=== PATIENT | male | born 1990 | race Caucasian/White ===

== ENCOUNTER 2020-06-03 17:21 | Emergency (ER) | payer OTHER ==
[~2020-06-03 17:21] MED LIST: CYANOCOBAL1000 MCG/1 IJ; NAPROXEN500 MG PO; PROPRANOLOL HCL10 MG PO; SYMMETREL100 MG PO; ZOFRAN4 MG PO
[2020-06-03 18:34] LABS: BASOPHIL 0.3 % (0-2); EOSINOPHIL 0.3 % (0-5); HCT 39.8 % (42.0-52.0); HGB 13.3 g/dl (13.2-18.0); LYMPHOCYTE 15.3 % (15-48); MCH 28.6 pg (25.0-31.0); MCHC 33.4 g/dL (32.0-36.0); MCV 85.6 fL (78.0-100.0); MPV 10.4 fL (6.0-9.5); NEUTROPHIL 76.9 % (41-80); NRBC 0; PLT 178 K/uL (150-400); RBC 4.65 M/uL (4.70-6.00); RDW 12.3 % (11.5-14.0)
[2020-06-03 19:02] LABS: BILIRUBIN - TOTAL 0.5 mg/dL (0.2-1.0); BUN/CREAT RATIO (CALC) 26.9 RATIO; CREATININE 0.93 mg/dL (0.67-1.17); GLOBULIN (CALCULATION) 2.9 g/dL; POTASSIUM 4.4 mmol/L (3.5-5.1); TOTAL PROTEIN 6.9 g/dL (6.4-8.2)
== END 2020-06-03 20:22 | disposition home or self-care (01) ==
LOC: FER 17:21
PROVIDERS: Nurse Practitioner Family
DX: R07.89 Other chest pain (principal); R06.02 Shortness of breath; Z91.09 Other allergy status, other than to drugs and biological substances
CPT/HCPCS: 36415; 71046; 80053; 84443; 84484; 85025; 93005

== ENCOUNTER 2020-07-29 19:02 | Emergency (ER) | payer MEDICARE, OTHER ==
[2020-07-29 20:17] LABS: BASOPHIL 0.8 % (0-2); EOSINOPHIL 0.4 % (0-5); HGB 14.4 g/dl (13.2-18.0); LYMPHOCYTE 26.3 % (15-48); MCHC 34.3 g/dL (32.0-36.0); MCV 84.7 fL (78.0-100.0); MONOCYTE 8.2 % (0-12); MPV 11.8 fL (6.0-9.5); NEUTROPHIL 64.3 % (41-80); NRBC 0; PLT 182 K/uL (150-400); RBC 4.96 M/uL (4.70-6.00); RDW 12.7 % (11.5-14.0); WBC 5.1 K/uL (4.0-10.5)
[2020-07-29 20:22] LABS: INR 1.17 (0.9-1.2); PROTHROMBIN TIME 14.1 SECONDS (11.4-13.6); PTT 27.8 SECONDS (22.2-34.7)
[2020-07-29 20:23] LABS: D-DIMER 0.47 ug/mLFEU (0.00-0.41)
[2020-07-29 20:33] LABS: PRO-BNP 21 pg/mL (<125)
[2020-07-29 20:47] LABS: AMPHETAMINES NEGATIVE (NEGATIVE); BARBITURATES NEGATIVE (NEGATIVE); ECSTASY (MDMA) NEGATIVE (NEGATIVE); MARIJUANA (THC) NEGATIVE (NEGATIVE); METHADONE NEGATIVE (NEGATIVE); OPIATES NEGATIVE (NEGATIVE); OXYCODONE NEGATIVE (NEGATIVE)
[2020-07-29 20:48] LABS: BILIRUBIN NEGATIVE (NEGATIVE); BLOOD NEGATIVE Ery/uL (NEGATIVE); CLARITY CLEAR (CLEAR); COLOR YELLOW (YELLOW); GLUCOSE (U) NORMAL (NORMAL); LEUKOCYTES NEGATIVE Leu/uL (NEGATIVE); NITRITE NEGATIVE (NEGATIVE); PROTEIN NEGATIVE (NEGATIVE); SPECIFIC GRAVITY 1.015 (1.001-1.030); UROBILINOGEN 0.2 mg/dL (0.2-1.0)
[2020-07-29 20:58] LABS: ALBUMIN 4.7 g/dL (3.4-5.0); BILIRUBIN - TOTAL 0.5 mg/dL (0.2-1.0); BUN/CREAT RATIO (CALC) 25.7 RATIO; CREATININE 1.01 mg/dL (0.67-1.17); GLOBULIN (CALCULATION) 3.5 g/dL; POTASSIUM 2.9 mmol/L (3.5-5.1); TOTAL PROTEIN 8.2 g/dL (6.4-8.2)
== END 2020-07-30 02:16 | disposition home or self-care (01) ==
LOC: FER 19:02
PROVIDERS: Emergency Medicine Emergency Medical Services
DX: R07.89 Other chest pain (principal); E87.6 Hypokalemia; R00.0 Tachycardia, unspecified; R10.31 Right lower quadrant pain; Z88.6 Allergy status to analgesic agent; Z88.8 Allergy status to other drugs, medicaments and biological substances
CPT/HCPCS: 36415; 71045; 80053; 80305; 81003; 82088; 82306; 82533; 82550; 83036; 83690; 83880; 84439; 84443; 84484; 85025; 85379; 85610; 85730; 86140; 87339; 93005; J3480; J7030

== ENCOUNTER 2020-09-05 20:59 | Emergency (ER) | payer MEDICARE, OTHER | END 2020-09-05 22:49 | disposition left against medical advice (07) | LOC: FER 20:59 | DX: R07.9 Chest pain, unspecified (principal); Z53.21 Procedure and treatment not carried out due to patient leaving prior to being seen by health care provider | CPT/HCPCS: 93005 ==

== ENCOUNTER 2020-12-03 08:42 | Emergency (ER) | payer MEDICARE, OTHER ==
[2020-12-03 09:58] LABS: BASOPHIL 0.6 % (0-2); EOSINOPHIL 1.7 % (0-5); HCT 45.4 % (42.0-52.0); HGB 14.9 g/dl (13.2-18.0); LYMPHOCYTE 27.7 % (15-48); MCH 28.4 pg (25.0-31.0); MCHC 32.8 g/dL (32.0-36.0); MCV 86.5 fL (78.0-100.0); MONOCYTE 10.2 % (0-12); MPV 11.1 fL (6.0-9.5); NEUTROPHIL 59.5 % (41-80); NRBC 0; PLT 179 K/uL (150-400); RBC 5.25 M/uL (4.70-6.00); RDW 12.2 % (11.5-14.0); WBC 3.6 K/uL (4.0-10.5)
[2020-12-03 09:59] LABS: BILIRUBIN NEGATIVE (NEGATIVE); BLOOD NEGATIVE Ery/uL (NEGATIVE); CLARITY CLEAR (CLEAR); COLOR YELLOW (YELLOW); GLUCOSE (U) NORMAL (NORMAL); LEUKOCYTES NEGATIVE Leu/uL (NEGATIVE); NITRITE NEGATIVE (NEGATIVE); PROTEIN NEGATIVE (NEGATIVE); UROBILINOGEN 0.2 mg/dL (0.2-1.0)
[2020-12-03 10:26] LABS: ALBUMIN 4.2 g/dL (3.4-5.0); BILIRUBIN - TOTAL 0.6 mg/dL (0.2-1.0); BUN/CREAT RATIO (CALC) 29.1 RATIO; CREATININE 0.79 mg/dL (0.67-1.17); GLOBULIN (CALCULATION) 3.5 g/dL; POTASSIUM 3.8 mmol/L (3.5-5.1); TOTAL PROTEIN 7.7 g/dL (6.4-8.2)
== END 2020-12-03 11:18 | disposition home or self-care (01) ==
LOC: FER 08:42
PROVIDERS: Emergency Medicine
DX: M54.50 Low back pain, unspecified (principal); Z88.8 Allergy status to other drugs, medicaments and biological substances; Z88.6 Allergy status to analgesic agent
CPT/HCPCS: 36415; 80053; 81003; 85025; 93005

== ENCOUNTER 2021-02-18 21:04 | Emergency (ER) | payer OTHER ==
[2021-02-18 22:03] LABS: BASOPHIL 0.5 % (0-2); EOSINOPHIL 1.1 % (0-5); HCT 43.8 % (42.0-52.0); HGB 14.7 g/dl (13.2-18.0); MCH 27.8 pg (25.0-31.0); MCHC 33.6 g/dL (32.0-36.0); MONOCYTE 9.4 % (0-12); MPV 11.7 fL (6.0-9.5); NRBC 0; PLT 180 K/uL (150-400); RBC 5.28 M/uL (4.70-6.00); RDW 11.8 % (11.5-14.0); WBC 3.7 K/uL (4.0-10.5)
[2021-02-18 22:28] LABS: BUN/CREAT RATIO (CALC) 28.9 RATIO; CREATININE 0.76 mg/dL (0.67-1.17); POTASSIUM 3.3 mmol/L (3.5-5.1)
[2021-02-18 23:44] LABS: CORONAVIRUS 2019 SARS-COV-2 NEGATIVE (NEGATIVE); INFLUENZA A NAA NEGATIVE (NEGATIVE)
== END 2021-02-19 00:50 | disposition home or self-care (01) ==
LOC: FER 21:04
PROVIDERS: Nurse Practitioner Family
DX: R07.89 Other chest pain (principal); R10.9 Unspecified abdominal pain; Z20.822 Contact with and (suspected) exposure to COVID-19; Z88.6 Allergy status to analgesic agent; Z88.8 Allergy status to other drugs, medicaments and biological substances
CPT/HCPCS: 36415; 71045; 80048; 83540; 84443; 85025; 93005; J7030; U0002

== ENCOUNTER 2021-05-08 05:55 | Emergency (ER) | payer OTHER ==
[2021-05-08 06:49] LABS: BASOPHIL 0.6 % (0-2); EOSINOPHIL 0.6 % (0-5); HCT 45.3 % (42.0-52.0); HGB 15.5 g/dl (13.2-18.0); LYMPHOCYTE 29.1 % (15-48); MCH 28.2 pg (25.0-31.0); MCHC 34.2 g/dL (32.0-36.0); MCV 82.5 fL (78.0-100.0); MONOCYTE 9.2 % (0-12); MPV 10.7 fL (6.0-9.5); NEUTROPHIL 60.2 % (41-80); NRBC 0; PLT 170 K/uL (150-400); RBC 5.49 M/uL (4.70-6.00); RDW 12.1 % (11.5-14.0); WBC 3.6 K/uL (4.0-10.5)
[2021-05-08 07:13] LABS: BUN/CREAT RATIO (CALC) 35.2 RATIO; CREATININE 0.88 mg/dL (0.67-1.17); POTASSIUM 3.3 mmol/L (3.5-5.1)
[2021-05-08 07:21] LABS: CORONAVIRUS 2019 SARS-COV-2 NEGATIVE (NEGATIVE); INFLUENZA A NAA NEGATIVE (NEGATIVE)
[2021-05-08 08:18] LABS: BILIRUBIN - TOTAL 0.6 mg/dL (0.2-1.0)
[2021-05-08 09:46] LABS: PHOSPHORUS 3.7 mg/dL (2.6-4.7)
== END 2021-05-08 12:14 | disposition home or self-care (01) ==
LOC: FER 05:55
PROVIDERS: Emergency Medicine; Internal Medicine
DX: R00.2 Palpitations (principal); R19.7 Diarrhea, unspecified; Z88.6 Allergy status to analgesic agent; Z88.8 Allergy status to other drugs, medicaments and biological substances; Z20.822 Contact with and (suspected) exposure to COVID-19
CPT/HCPCS: 36415; 71045; 80048; 82247; 83735; 83880; 84075; 84100; 84145; 84450; 84460; 84484; 85025; 85379; 93005; J3475; J3480; J7040; J7050; U0002

== ENCOUNTER 2021-09-06 10:40 | Emergency (ER) | payer OTHER ==
[2021-09-06 11:36] LABS: BASOPHIL 0.7 % (0-2); EOSINOPHIL 0.7 % (0-5); HCT 48.4 % (42.0-52.0); HGB 15.8 g/dl (13.2-18.0); LYMPHOCYTE 24.4 % (15-48); MCHC 32.6 g/dL (32.0-36.0); MCV 85.7 fL (78.0-100.0); MONOCYTE 7.1 % (0-12); MPV 10.8 fL (6.0-9.5); NEUTROPHIL 66.9 % (41-80); NRBC 0; PLT 211 K/uL (150-400); RBC 5.65 M/uL (4.70-6.00); RDW 12.8 % (11.5-14.0); WBC 4.1 K/uL (4.0-10.5)
[2021-09-06 11:39] LABS: INR 1.11 (0.9-1.2); PTT 29.7 SECONDS (24.9-34.6)
[2021-09-06 12:50] LABS: ALBUMIN 4.2 g/dL (3.4-5.0); BILIRUBIN - TOTAL 0.3 mg/dL (0.2-1.0); BUN/CREAT RATIO (CALC) 30.8 RATIO; CREATININE 1.04 mg/dL (0.67-1.17); GLOBULIN (CALCULATION) 3.4 g/dL; POTASSIUM 3.8 mmol/L (3.5-5.1); TOTAL PROTEIN 7.6 g/dL (6.4-8.2)
[2021-09-06 13:36] LABS: BILIRUBIN NEGATIVE (NEGATIVE); BLOOD NEGATIVE Ery/uL (NEGATIVE); CLARITY CLEAR (CLEAR); COLOR YELLOW (YELLOW); GLUCOSE (U) NORMAL (NORMAL); LEUKOCYTES NEGATIVE Leu/uL (NEGATIVE); NITRITE NEGATIVE (NEGATIVE); PROTEIN NEGATIVE (NEGATIVE); UROBILINOGEN 0.2 mg/dL (0.2-1.0)
[2021-09-06 13:44] LABS: BACTERIA TRACE; SQUAMOUS EPITHELIAL CELLS RARE; URINARY WBC RARE
[2021-09-07 13:21] LABS: AMPHETAMINES NEGATIVE (NEGATIVE); BARBITURATES NEGATIVE (NEGATIVE); ECSTASY (MDMA) NEGATIVE (NEGATIVE); MARIJUANA (THC) NEGATIVE (NEGATIVE); METHADONE NEGATIVE (NEGATIVE); OPIATES NEGATIVE (NEGATIVE); OXYCODONE NEGATIVE (NEGATIVE)
== END 2021-09-06 16:04 | disposition home or self-care (01) ==
LOC: FER 10:40
PROVIDERS: Emergency Medicine; Physician Assistant
DX: R00.2 Palpitations (principal); E46 Unspecified protein-calorie malnutrition; Z28.310 Unvaccinated for COVID-19; Z88.6 Allergy status to analgesic agent; Z88.8 Allergy status to other drugs, medicaments and biological substances; Z91.018 Allergy to other foods
CPT/HCPCS: 36415; 80053; 80305; 81001; 84443; 84484; 85025; 85610; 85730; 93005; J7040